=== PATIENT | male | born 1940 | race Caucasian/White ===

== ENCOUNTER 2018-07-19 20:11 | Inpatient (IN) ==
[2018-07-19] MEDS ORDERED: ONDANSETRON 4 MG/2 ML VIAL IV STA (20:58)
[2018-07-19] MEDS ORDERED: ALBUTEROL/IPRATROPIUM 3 ML NEB RESP TX STA (20:58)
[2018-07-19] MEDS ORDERED: methylPREDNISolone SOD SUC 125 MG/2 ML VIAL IV STA (20:58)
[2018-07-19 21:42] LABS: Basophils # 0.1 10*3/uL (0.0-0.2); Basophils % 0.8 % (0.0-0.8); Eosinophils # 0.2 10*3/uL (0.0-0.87); Eosinophils % 1.9 % (0.00-10.9); Hematocrit 49.3 VOL% (42.0-52.0); Hemoglobin 15.9 GM/DL (14.0-18.0); Immature Granulocytes % 0.6 %; Immature Granulocytes Absolute 0.06 #; Lymphocytes # 1.5 10*3/uL (1.4-4.0); Lymphocytes % 14.1 % (21.2-54.2); Mean Corpuscular HGB Conc 32.3 GM/DL (32-36); Mean Corpuscular Hemoglobin 29 PG (27-34); Mean Corpuscular Volume 91.1 FL (87-102); Mean Platelet Volume 11.1 FL (9.6-12.0); Monocytes # 0.8 10*3/uL (0.11-0.8); Monocytes % 7.6 % (1.7-12.7); Neutrophils # 7.8 10*3/uL (1.4-7.4); Platelet Count 204 T/CUMM (130-400); Red Blood Count 5.41 MC/CUMM (3.8-5.5); Red Cell Distribution Width 13.4 % (9.3-17.3); White Blood Count 10.3 T/CUMM (4-12)
[2018-07-19 21:54] LABS: PT Patient Result 10.4 SECS
[2018-07-19 22:05] LABS: Alanine Aminotransferase 22 U/L (16-61); Albumin 2.4 G/DL (3.4-5.0); Alkaline Phosphatase 167 U/L (45-117); Aspartate Amino Transferase 20 U/L (0-37); Blood Urea Nitrogen 36 MG/DL (7-18); Calcium 8.8 MG/DL (8.5-10.1); Glucose 284 MG/DL (74-106); Osmolality,Calculated 279.7 MOS/KG (273-304); Potassium 5.3 MMOL/L (3.5-5.1); Sodium 131 MMOL/L (136-145); Total Protein 8.4 G/DL (6.4-8.3)
[2018-07-19] MEDS ORDERED: ENOXAPARIN 100 MG/ML SYRINGE SUBCUT STA (22:23)
[2018-07-19] MEDS ORDERED: CLINDAMYCIN INJ 900 MG in PREMIX 1 EACH IV STA (22:23)
[2018-07-19] MEDS ORDERED: SODIUM CHLORIDE 0.9% 1,000 ML IV STA (22:23)
[2018-07-19] MEDS ORDERED: diphenhydrAMINE CAP 25 MG CAPSULE PO PRN (23:00)
[2018-07-19] MEDS ORDERED: GLUCAGON 1 MG VIAL IM PRN (23:00)
[2018-07-19] MEDS ORDERED: BISACODYL 5 MG TABLET PO PRN (23:00)
[2018-07-19] MEDS ORDERED: ALBUTEROL 2.5 MG/3 ML NEB RESP TX PRN (23:00)
[2018-07-19] MEDS ORDERED: ONDANSETRON 4 MG/2 ML VIAL IV PRN (23:00)
[2018-07-19] MEDS ORDERED: DEXTROSE 50% 25 GM/50 ML SYRINGE IV PRN (23:00)
[2018-07-19] MEDS ORDERED: NICOTINE 21 MG/24 HR PATCH TRANSDERM PRN (23:00)
[2018-07-19 23:42] LABS: Apearance,Urine CLEAR (Clear); Bilirubin,Urine Negative (Negative); Blood, Urine Negative (Negative); Glucose,Urine (UA) Negative (Negative); Ketones,Urine Negative (Negative); Mucus,Urine Occasional /LPF (Occasional); Nitrite,Urine Negative (Negative); Protein,Urine Negative; Urine Color Yellow (Yellow); Urine Specific Gravity 1.009 (1.001-1.035); Urine Urobilinogen < 2.0 EU/DL (0.2-1.0); WBC,Urine <1 /HPF (0-6)
[2018-07-19 23:58] LABS: Barbiturates Screen,Urine Negative (Negative); Benzodiazepines Screen,Urine Negative (Negative); Cannabinoid Screen,Urine Negative (Negative); Opiate Screen,Urine Negative (Negative); Phencyclidine Screen,Urine Negative (Negative)
[2018-07-20] MEDS: SODIUM CHLORIDE 0.9% 1,000 ML IV SCH ×3 (01:01→19:42)
[2018-07-20 01:02] LABS: Risk Ratio 3.65; VLDL CHOLESTEROL 20.6 MG/DL
[2018-07-20] MEDS: INSULIN REGULAR 100 UNIT/ML SUBCUT SCH ×4 (01:09→23:02)
[2018-07-20] MEDS ORDERED: SILVER SULFADIAZINE 1% CREAM 25 GM TUBE TOP STA (04:11)
[2018-07-20 04:14] LABS: Basophils % 0.2 % (0.0-0.8); Hematocrit 46.4 VOL% (42.0-52.0); Hemoglobin 14.9 GM/DL (14.0-18.0); Immature Granulocytes % 0.4 %; Immature Granulocytes Absolute 0.03 #; Lymphocytes # 0.3 10*3/uL (1.4-4.0); Mean Corpuscular HGB Conc 32.1 GM/DL (32-36); Mean Corpuscular Hemoglobin 29 PG (27-34); Mean Corpuscular Volume 91.7 FL (87-102); Mean Platelet Volume 10.7 FL (9.6-12.0); Monocytes # 0.1 10*3/uL (0.11-0.8); Monocytes % 0.7 % (1.7-12.7); Neutrophils # 7.9 10*3/uL (1.4-7.4); Neutrophils % 94.7 % (38.7-73.9); Platelet Count 194 T/CUMM (130-400); Red Blood Count 5.06 MC/CUMM (3.8-5.5); Red Cell Distribution Width 13.4 % (9.3-17.3); White Blood Count 8.3 T/CUMM (4-12)
[2018-07-20 04:21] LABS: INR 0.9; PT Patient Result 10.3 SECS
[2018-07-20 04:33] LABS: Alanine Aminotransferase 20 U/L (16-61); Albumin 2.2 G/DL (3.4-5.0); Alkaline Phosphatase 146 U/L (45-117); Aspartate Amino Transferase 15 U/L (0-37); Bilirubin,Total < 0.39 MG/DL (0.2-1.0); Blood Urea Nitrogen 42 MG/DL (7-18); Calcium 8.4 MG/DL (8.5-10.1); Glucose 292 MG/DL (74-106); Osmolality,Calculated 283.7 MOS/KG (273-304); Potassium 5.3 MMOL/L (3.5-5.1); Sodium 131 MMOL/L (136-145); Total Protein 8.2 G/DL (6.4-8.3)
[2018-07-20 04:48] LABS: Lymphocytes 6 % (20-55); Segmented Neutrophils 93 % (50-85)
[2018-07-20 04:49] LABS: Platelet Estimate Adequate; Total Cells Counted 100
[2018-07-20] MEDS: LEVOFLOXACIN INJ 500 MG in PREMIX 1 EACH IV SCH (06:38)
[2018-07-20] MEDS: CLINDAMYCIN INJ 600 MG in PREMIX 1 EACH IV SCH ×3 (07:45→23:03)
[2018-07-20] MEDS: PANTOPRAZOLE 40 MG VIAL IV SCH (10:00)
[2018-07-20] MEDS: ENOXAPARIN 150 MG/ML SYRINGE SUBCUT SCH (23:03)
[2018-07-21] MEDS: INSULIN REGULAR 100 UNIT/ML SUBCUT SCH ×4 (00:10→18:03)
[2018-07-21 04:43] LABS: Basophils # 0.1 10*3/uL (0.0-0.2); Basophils % 0.5 % (0.0-0.8); Eosinophils # 0.1 10*3/uL (0.0-0.87); Eosinophils % 1.1 % (0.00-10.9); Hematocrit 42.1 VOL% (42.0-52.0); Hemoglobin 13.2 GM/DL (14.0-18.0); Immature Granulocytes % 0.4 %; Immature Granulocytes Absolute 0.04 #; Lymphocytes # 2.5 10*3/uL (1.4-4.0); Lymphocytes % 24.1 % (21.2-54.2); Mean Corpuscular HGB Conc 31.4 GM/DL (32-36); Mean Corpuscular Hemoglobin 29 PG (27-34); Mean Corpuscular Volume 92.9 FL (87-102); Mean Platelet Volume 11.5 FL (9.6-12.0); Monocytes % 9.2 % (1.7-12.7); Neutrophils # 6.8 10*3/uL (1.4-7.4); Neutrophils % 64.7 % (38.7-73.9); Platelet Count 207 T/CUMM (130-400); Red Blood Count 4.53 MC/CUMM (3.8-5.5); Red Cell Distribution Width 13.4 % (9.3-17.3); White Blood Count 10.4 T/CUMM (4-12)
[2018-07-21 05:13] LABS: Calcium 8.6 MG/DL (8.5-10.1); Potassium 4.2 MMOL/L (3.5-5.1)
[2018-07-21] MEDS: LEVOFLOXACIN INJ 500 MG in PREMIX 1 EACH IV SCH (05:45)
[2018-07-21] MEDS: CLINDAMYCIN INJ 600 MG in PREMIX 1 EACH IV SCH ×3 (06:50→23:40)
[2018-07-21] MEDS: PANTOPRAZOLE 40 MG VIAL IV SCH (09:36)
[2018-07-21] MEDS: SODIUM CHLORIDE 0.9% 1,000 ML IV SCH ×3 (15:25→16:14)
[2018-07-21] MEDS: ENOXAPARIN 150 MG/ML SYRINGE SUBCUT SCH (23:40)
[2018-07-22] MEDS: INSULIN REGULAR 100 UNIT/ML SUBCUT SCH ×5 (01:47→23:36)
[2018-07-22] MEDS: SODIUM CHLORIDE 0.9% 1,000 ML IV SCH ×3 (01:47→23:09)
[2018-07-22 05:17] LABS: Basophils # 0.1 10*3/uL (0.0-0.2); Basophils % 1.1 % (0.0-0.8); Eosinophils # 0.3 10*3/uL (0.0-0.87); Eosinophils % 4.6 % (0.00-10.9); Hematocrit 44.1 VOL% (42.0-52.0); Hemoglobin 13.6 GM/DL (14.0-18.0); Immature Granulocytes % 0.3 %; Immature Granulocytes Absolute 0.02 #; Lymphocytes # 2.5 10*3/uL (1.4-4.0); Lymphocytes % 34.5 % (21.2-54.2); Mean Corpuscular HGB Conc 30.8 GM/DL (32-36); Mean Corpuscular Hemoglobin 29 PG (27-34); Mean Corpuscular Volume 92.6 FL (87-102); Mean Platelet Volume 11.5 FL (9.6-12.0); Monocytes # 0.6 10*3/uL (0.11-0.8); Monocytes % 8.5 % (1.7-12.7); Neutrophils # 3.7 10*3/uL (1.4-7.4); Platelet Count 176 T/CUMM (130-400); Red Blood Count 4.76 MC/CUMM (3.8-5.5); Red Cell Distribution Width 13.3 % (9.3-17.3); White Blood Count 7.3 T/CUMM (4-12)
[2018-07-22] MEDS: LEVOFLOXACIN INJ 500 MG in PREMIX 1 EACH IV SCH (05:35)
[2018-07-22 05:38] LABS: Calcium 8.8 MG/DL (8.5-10.1); Osmolality,Calculated 282.1 MOS/KG (273-304); Potassium 4.2 MMOL/L (3.5-5.1)
[2018-07-22] MEDS: CLINDAMYCIN INJ 600 MG in PREMIX 1 EACH IV SCH ×3 (06:40→23:08)
[2018-07-22] MEDS: PANTOPRAZOLE 40 MG VIAL IV SCH (10:34)
[2018-07-22] MEDS: ENOXAPARIN 40 MG/0.4 ML SYRINGE SUBCUT SCH (14:00)
[2018-07-22] MEDS: LEVOFLOXACIN 500 MG TABLET PO SCH (14:00)
[2018-07-22] MEDS: metFORMIN 500 MG TABLET PO SCH (17:44)
[2018-07-22] MEDS ORDERED: ALBUTEROL/IPRATROPIUM 3 ML NEB RESP TX PRN (22:34)
[2018-07-22] MEDS: guaiFENesin 200 MG/10 ML UDCUP PO PRN (23:08)
[2018-07-23] MEDS: INSULIN REGULAR 100 UNIT/ML SUBCUT SCH ×3 (06:02→17:51)
[2018-07-23] MEDS: CLINDAMYCIN INJ 600 MG in PREMIX 1 EACH IV SCH ×3 (06:03→23:28)
[2018-07-23] MEDS: metFORMIN 500 MG TABLET PO SCH ×2 (09:53→17:42)
[2018-07-23] MEDS: PANTOPRAZOLE 40 MG TABLET PO SCH (09:53)
[2018-07-23] MEDS: SODIUM CHLORIDE 0.9% 1,000 ML IV SCH ×2 (11:16→17:42)
[2018-07-23] MEDS: guaiFENesin 200 MG/10 ML UDCUP PO PRN (11:17)
[2018-07-23] MEDS: ENOXAPARIN 40 MG/0.4 ML SYRINGE SUBCUT SCH (12:32)
[2018-07-23] MEDS: LEVOFLOXACIN 500 MG TABLET PO SCH (15:04)
[2018-07-24] MEDS: INSULIN REGULAR 100 UNIT/ML SUBCUT SCH ×2 (00:34→06:55)
[2018-07-24] MEDS: guaiFENesin 200 MG/10 ML UDCUP PO PRN (00:43)
[2018-07-24] MEDS: oxyCODONE IR 5 MG TABLET PO PRN ×2 (03:45→09:24)
[2018-07-24 06:11] LABS: Basophils # 0.1 10*3/uL (0.0-0.2); Basophils % 1.1 % (0.0-0.8); Eosinophils # 0.5 10*3/uL (0.0-0.87); Eosinophils % 6.4 % (0.00-10.9); Hematocrit 42.8 VOL% (42.0-52.0); Immature Granulocytes % 0.3 %; Immature Granulocytes Absolute 0.02 #; Lymphocytes # 2.2 10*3/uL (1.4-4.0); Lymphocytes % 31.8 % (21.2-54.2); Mean Corpuscular HGB Conc 30.4 GM/DL (32-36); Mean Corpuscular Hemoglobin 28 PG (27-34); Mean Corpuscular Volume 93.4 FL (87-102); Mean Platelet Volume 11.4 FL (9.6-12.0); Monocytes # 0.6 10*3/uL (0.11-0.8); Monocytes % 8.1 % (1.7-12.7); Neutrophils # 3.7 10*3/uL (1.4-7.4); Neutrophils % 52.3 % (38.7-73.9); Platelet Count 169 T/CUMM (130-400); Red Blood Count 4.58 MC/CUMM (3.8-5.5); Red Cell Distribution Width 13.6 % (9.3-17.3)
[2018-07-24 06:26] LABS: Calcium 7.9 MG/DL (8.5-10.1); Osmolality,Calculated 280.8 MOS/KG (273-304); Potassium 3.8 MMOL/L (3.5-5.1)
[2018-07-24] MEDS: CLINDAMYCIN INJ 600 MG in PREMIX 1 EACH IV SCH (06:50)
[2018-07-24] MEDS: PANTOPRAZOLE 40 MG TABLET PO SCH (09:24)
[2018-07-24] MEDS ORDERED: SODIUM HYPOCHLORITE 0.25% IRRIG 473 ML BOTTLE TOP SCH (11:00)
[2018-07-24] MEDS: metFORMIN 500 MG TABLET PO SCH (11:40)
[2018-07-24 12:05] VITALS: BP 139/74
== END 2018-07-24 11:50 | disposition swing bed (61) | DRG 560 ==
LOC: EDUNIT# → EDBD → N.ED 20:11 → SUATTDRO 23:00 → N.EDINP 23:00 → N.5E 07-20 10:21
PROVIDERS: ADMIT Internal Medicine; ATTEND Emergency Medicine

== ENCOUNTER 2018-08-15 20:35 | Observation (INO) ==
[2018-08-15] MEDS ORDERED: traMADol 50 MG TABLET PO STA (21:42)
[2018-08-15] MEDS ORDERED: INSULIN REGULAR 100 UNIT/ML SUBCUT STA (22:48)
[2018-08-15] MEDS ORDERED: INSULIN REGULAR 100 UNIT/ML IV STA (23:55)
[2018-08-15] MEDS ORDERED: SODIUM CHLORIDE 0.9% 1,000 ML IV STA (23:55)
[2018-08-16 00:45] LABS: Basophils # 0.1 10*3/uL (0.0-0.2); Basophils % 0.6 % (0.0-0.8); Eosinophils # 0.1 10*3/uL (0.0-0.87); Eosinophils % 0.6 % (0.00-10.9); Hematocrit 47.2 VOL% (42.0-52.0); Immature Granulocytes % 0.4 %; Immature Granulocytes Absolute 0.06 #; Lymphocytes # 1.9 10*3/uL (1.4-4.0); Lymphocytes % 13.5 % (21.2-54.2); Mean Corpuscular HGB Conc 31.8 GM/DL (32-36); Mean Corpuscular Hemoglobin 29 PG (27-34); Mean Corpuscular Volume 91.7 FL (87-102); Mean Platelet Volume 10.9 FL (9.6-12.0); Monocytes # 1.1 10*3/uL (0.11-0.8); Monocytes % 7.6 % (1.7-12.7); Neutrophils # 11.1 10*3/uL (1.4-7.4); Neutrophils % 77.3 % (38.7-73.9); Platelet Count 232 T/CUMM (130-400); Red Blood Count 5.15 MC/CUMM (3.8-5.5); Red Cell Distribution Width 13.7 % (9.3-17.3); White Blood Count 14.3 T/CUMM (4-12)
[2018-08-16 01:03] LABS: Alanine Aminotransferase 15 U/L (16-61); Albumin 2.7 G/DL (3.4-5.0); Alkaline Phosphatase 118 U/L (45-117); Aspartate Amino Transferase 9 U/L (0-37); Bilirubin,Total < 0.39 MG/DL (0.2-1.0); Blood Urea Nitrogen 38 MG/DL (7-18); Calcium 9.1 MG/DL (8.5-10.1); Glucose 411 MG/DL (74-106); Osmolality,Calculated 289.5 MOS/KG (273-304); Potassium 5.4 MMOL/L (3.5-5.1); Sodium 132 MMOL/L (136-145); Total Protein 7.6 G/DL (6.4-8.3)
[2018-08-16] MEDS ORDERED: ONDANSETRON 4 MG/2 ML VIAL IV PRN (01:39)
[2018-08-16] MEDS ORDERED: GLUCAGON 1 MG VIAL IM PRN (01:39)
[2018-08-16] MEDS ORDERED: MORPHINE 4 MG/1 ML VIAL IV PRN (01:39)
[2018-08-16] MEDS ORDERED: DEXTROSE 50% 25 GM/50 ML VIAL IV PRN (01:39)
[2018-08-16] MEDS ORDERED: ALBUTEROL/IPRATROPIUM 3 ML NEB RESP TX PRN (01:44)
[2018-08-16] MEDS: SODIUM CHLORIDE 0.9% 1,000 ML IV SCH ×3 (03:40→21:47)
[2018-08-16 07:41] LABS: Basophils # 0.1 10*3/uL (0.0-0.2); Eosinophils # 0.4 10*3/uL (0.0-0.87); Eosinophils % 4.2 % (0.00-10.9); Hematocrit 45.6 VOL% (42.0-52.0); Hemoglobin 14.4 GM/DL (14.0-18.0); Immature Granulocytes % 0.4 %; Immature Granulocytes Absolute 0.04 #; Lymphocytes # 2.1 10*3/uL (1.4-4.0); Lymphocytes % 21.2 % (21.2-54.2); Mean Corpuscular HGB Conc 31.6 GM/DL (32-36); Mean Corpuscular Hemoglobin 29 PG (27-34); Mean Corpuscular Volume 91.8 FL (87-102); Mean Platelet Volume 10.6 FL (9.6-12.0); Monocytes % 10.3 % (1.7-12.7); Neutrophils # 6.2 10*3/uL (1.4-7.4); Neutrophils % 62.9 % (38.7-73.9); Platelet Count 219 T/CUMM (130-400); Red Blood Count 4.97 MC/CUMM (3.8-5.5); White Blood Count 9.8 T/CUMM (4-12)
[2018-08-16 08:00] LABS: Calcium 9.1 MG/DL (8.5-10.1); Potassium 4.6 MMOL/L (3.5-5.1)
[2018-08-16] MEDS: PANTOPRAZOLE 40 MG TABLET PO SCH (08:24)
[2018-08-16] MEDS: AZITHROMYCIN 250 MG TABLET PO SCH (08:24)
[2018-08-16] MEDS: INSULIN REGULAR 100 UNIT/ML SUBCUT SCH ×4 (08:25→21:48)
[2018-08-16] MEDS: ENOXAPARIN 40 MG/0.4 ML SYRINGE SUBCUT SCH (08:33)
[2018-08-16 09:43] LABS: Apearance,Urine Slightly Hazy (Clear); Bilirubin,Urine Negative (Negative); Blood, Urine Negative (Negative); Glucose,Urine (UA) >=500 mg/dL (Negative); Ketones,Urine Negative (Negative); Nitrite,Urine Negative (Negative); Protein,Urine Negative; Urine Color Yellow (Yellow); Urine Specific Gravity 1.014 (1.001-1.035); Urine Urobilinogen < 2.0 EU/DL (0.2-1.0)
[2018-08-16 09:55] LABS: Bacteria,Urine 2+ /HPF (Few); RBC,Urine 0-1 /HPF (0-4); Squamous Epithelial Cell,Urine Few /HPF (0-10); WBC,Urine 0-1 /HPF (0-6)
[2018-08-16] MEDS: PSEUDOEPHEDRINE 30 MG TABLET PO SCH (16:40)
[2018-08-16] MEDS: ALBUTEROL/IPRATROPIUM 3 ML NEB RESP TX SCH (20:08)
[2018-08-16] MEDS ORDERED: INSULIN GLARGINE 100 UNIT/ML SUBCUT SCH (21:00)
[2018-08-16] MEDS: FLUTICASONE 50 MCG NASAL SPRAY 16 GM BOTTLE BOTH NARES SCH (21:51)
[2018-08-17] MEDS: ALBUTEROL/IPRATROPIUM 3 ML NEB RESP TX SCH (01:12)
[2018-08-17] MEDS: SODIUM CHLORIDE 0.9% 1,000 ML IV SCH (05:50)
[2018-08-17] MEDS: AZITHROMYCIN 250 MG TABLET PO SCH (10:11)
[2018-08-17] MEDS: PSEUDOEPHEDRINE 30 MG TABLET PO SCH (10:11)
[2018-08-17] MEDS: PANTOPRAZOLE 40 MG TABLET PO SCH (10:12)
[2018-08-17] MEDS: INSULIN REGULAR 100 UNIT/ML SUBCUT SCH ×2 (10:12→18:56)
[2018-08-17] MEDS: ENOXAPARIN 40 MG/0.4 ML SYRINGE SUBCUT SCH (10:16)
[2018-08-17] MEDS: FLUTICASONE 50 MCG NASAL SPRAY 16 GM BOTTLE BOTH NARES SCH (10:16)
[2018-08-17 11:40] VITALS: BP 142/85
== END 2018-08-17 17:01 | disposition home or self-care (01) ==
LOC: EDUNIT# → EDBD → N.EDINP 20:35 → N.ED 20:35 → N.2E 08-16 02:37
PROVIDERS: ADMIT Internal Medicine; ATTEND Internal Medicine